=== PATIENT | female | born 1945 | race Two or more races ===

== ENCOUNTER → 2020-09-18 | Day surgery (SDC) | payer MEDICARE ==
--- NOTE | 2020-09-13 10:01 | Opthalmology H&P ---
Ophthalmology H&P H&P Chief Complaint: decreased vision in right eye HPI Vision Affects Ability to: read, watch TV, manage personal affairs HPI Narrative Blurry vision Exam Visual Acuity: OD CF @2 ft OS CF@2 ft Tension: OD 20 OS 18 Eye Exam: normal OU: external exam, palpebral fissure-width, marginal reflex distance, levator function, corneas, anterior chambers, fundus exam; findings: lens Assessment/Plan Treatment Plan: cataract extraction w/ lens implant Goals of Treatment: improvement of vision, enhance quality of life Attestation Attestation The risks and benefits of the surgery as well as alternative procedures were explained to the patient in detail. Victorino Elizalde MD Sep 13, 2020 10:01
--- NOTE | 2020-09-13 10:17 | Pre-Procedure Note/Attestation ---
Pre-Procedure Note/Attestation Complete Prior to Procedure Planned Procedure: right Procedure Narrative: Cataract extraction with intraocular lens implant right eye Indications for Procedure Pre-Operative Diagnosis: Brunescent/ Posterior subcapsular cataract right eye Attestation I attest that I discussed the nature of the procedure; its benefits; risks and complications; and alternatives (and the risks and benefits of such alternatives), prior to the procedure, with the patient (or the patient's legal field service representative). I attest that, if there was a reasonable possibility of needing a blood transfusion, the patient (or the patient's legal field service representative) was given the [facility] standardized written summary, pursuant to the [place] Blood Safety Act ([place] Health and Safety Code # 1645, as amended). I attest that I re-evaluated the patient just prior to the surgery and that there has been no change in the patient's H&P, except as documented below: Victorino Elizalde MD Sep 13, 2020 10:17
[~2020-09-18] VITALS: Ht 167.6 cm; Wt 93.4 kg
[2020-09-18] VITALS (7 sets, daily range): BP systolic 110–137; BP diastolic 41–66
[~2020-09-18] MED LIST: ASPIRIN500 MG ORAL; Akten 3.5% 1ml Btl RIGHT EYE ONE; BLOOD THINNER PO; BSS 15ml BTL ONE; BSS 500ml btl ONE; DiphenhydrAMINE 50mg/ml Inj IVP PRN; EPINEPHrine 1mg/1ml Amp ONE; INSULIN ASPART SUBQ; LORATADINE10 M1 PO; LR 1000ml 1,000 ML IVLG SCH; Lidocaine 1% MPF 10mg/ml 5ml ONE; Maxitrol Opth Oint 3.5gm ONE; NS Irrig 1000ml ONE; Pilocarpine 1% Opth 15ml Soln ONE; Povidone-Iodine 5% opth solution ONE; Proparacaine 0.5% Opth Soln 15ml RIGHT EYE ONE; Sodium Hyaluronate 10 mg/ml 0.85ml ONE; Sterile Water Irrig 1000ml IRRIG ONE; TUMS DUAL ACTI1 EACH PO; Tetracaine 0.5% Opth 4ml Soln RIGHT EYE ONE; VITAMIN D32400 UNIT/ MC; prednisoLONE acetate 1% Opth Susp 1ml ONE
[2020-09-18] MEDS: Tropicamide 1% Opth 15ml Soln RIGHT EYE SCH ×3 (08:39→08:49)
[2020-09-18] MEDS: Diclofenac Sod 0.1% Op Soln RIGHT EYE SCH ×3 (08:39→08:49)
[2020-09-18] MEDS: Phenylephrine 10% Opth Soln 5ml RIGHT EYE SCH ×3 (08:39→08:49)
[2020-09-18] MEDS: Tobramycin Op Soln 0.3% 5ml RIGHT EYE SCH ×3 (08:39→09:29)
--- NOTE | 2020-09-18 08:56 | Anethesia Preoperative Eval ---
Anesthesia Pre-op PMH/ROS General Date of Evaluation: Sep 18, 2020 Anesthesiologist: Jose Enrique ASA Score: ASA 3 Mallampati Score Class I : Soft palate, uvula, fauces, pillars visible Class II: Soft palate, uvula, fauces visible Class III: Soft palate, base of uvula visible Class IV: Only hard plate visible Mallampati Classification: Class III Surgeon: Fide Diagnosis: right cataract Surgical Procedure: right cataract extraction with iol Anesthesia History: none Family History: no anesthesia problems Allergies: Coded Allergies: CODEINE (Verified Allergy, Unknown, 09/11/20) Medications: see eMAR Patient NPO?: Yes NPO Date: Sep 18, 2020 NPO Time: 00:00 Past Medical History Cardiovascular: Reports: HTN, other - pacemakr-last checked jul 2020; Denies: CAD, [place], valve dz, arrhythmia Pulmonary: Reports: other - bronchitis; Denies: asthma, COPD, BOBBY Gastrointestinal/Genitourinary: Reports: GERD, ESRD - last dialysis sat, no issues; Denies: CRI, other Neurologic/Psychiatric: Denies: dementia, CVA, depression/anxiety, TIA, other Endocrine: Denies: DM, hypothyroidism, steroids, other HEENT: Reports: cataract (L), cataract (R); Denies: glaucoma, SUN'AQ (L), SUN'AQ (R), other Hematology/Immune: Reports: anemia - chronic; Denies: DVT, bleeding disorder, other Musculoskeletal/Integumentary: Reports: OA; Denies: RA, DJD, DDD, edema, other Other: obesity PSxH Narrative: Riht AV shunt, JJ, T&A, foot sx, lalo, pacemaker, hemorrhoidectomy Anesthesia Pre-op Phys. Exam Physician Exam Last Vital Signs Date Time Temp Pulse Resp B/P (MAP) Pulse Ox O2 Delivery O2 Flow Rate FiO2 09/18/20 08:35 97.2 85 18 110/43 95 Room Air Constitutional: NAD Cardiovascular: RRR, other - +murmur Respiratory: other - decreased brath sounds bilaterally Airway Exam Mallampati Score: Class III MO: limited ROM: limited Anesthesia Pre-op A/P Labs see chart Studies Pre-op Studies: EKG - sr Risk Assessment & Plan Assessment: ASA III Plan: MAC Status Change Before Surgery: No Pre-Antibiotics Drug: N/A Ethel Quispe MD Sep 18, 2020 08:56
--- NOTE | 2020-09-18 11:41 | 48 Hour Post Anesthesia Eval ---
Post Anesthesia Evaluation Procedure: right cataract extraction wtih IOL Date of Evaluation: Sep 18, 2020 Airway: patent Nausea: No Vomiting: No Pain Intensity: 0 Hydration Status: adequate Cardiopulmonary Status: at baseline Mental Status/LOC: patient returned to baseline Post-Anesthesia Complications: 0 Follow-up care needed: ready to discharge Ethel Quispe MD Sep 18, 2020 11:41
--- NOTE | 2020-09-18 11:41 | Immediate Post-Op Evaluation ---
Immediate Post-Op Evalulation Immediate Post-Op Evalulation Procedure: right cataract extraction wtih IOL Date of Evaluation: Sep 18, 2020 Time of Evaluation: 11:42 IV Fluids: 100 Blood Products: 0 Estimated Blood Loss: min Urinary Output: 0 Blood Pressure Systolic: 133 Blood Pressure Diastolic: 59 Pulse Rate: 86 Respiratory Rate: 16 O2 Sat by Pulse Oximetry: 100 Temperature (Fahrenheit): 98.2 Pain Score (1-10): 0 Nausea: No Vomiting: No Complications 0 Patient Status: awake, reacts, patent, none Hydration Status: adequate Drug: N/A Ethel Quispe MD Sep 18, 2020 11:41
--- NOTE | 2020-09-19 16:09 | Brief Operative Note ---
Immediate Post Operative Note Operative Note Chief Complaint: Blurry vision Pre-op Diagnosis: Brunescent/ Posterior subcapsular cataract right eye Procedure: Cataract extraction with IOL implant right eye Post-op Diagnosis: Pseudo OD Findings: consistent w/pre-op dx studies Surgeon: Victorino Elizalde MD Anesthesiologist: Ethel Quispe MD Anesthesia: MAC Specimen: none Complications: none Condition: stable Fluids: LR Estimated Blood Loss: none Drains: none Implant(s) used?: Yes - IOL-OD Victorino Elizalde MD Sep 19, 2020 16:09
--- NOTE | 2020-09-19 16:19 | Operative Note - PDOC ---
Operative Note Operative Note Date of Operation/Procedure: Sep 18, 2020 Chief Complaint: Blurry vision Pre-op Diagnosis: Brunescent/ Posterior subcapsular cataract right eye Procedure: Cataract extraction with IOL implant right eye Post-op Diagnosis: Pseudo OD Operative Findings: consistent w/pre-op dx studies Surgeon: Victorino Elizalde MD Anesthesiologist: Ethel Quispe MD Anesthesia: MAC Specimen: none Complications: none Condition: stable Fluids: LR Estimated Blood Loss: none Drains: none Implant(s) used?: Yes - IOL-OD Indications for Procedure Brunescent/ Posterior subcapsular cataract right eye Description of Procedure This patient has been complaining visually significant cataract in the right eye with the best corrected visual acuity of counting fingers at two foot distance . The patient complains of difficulties with glare in performing activities of daily living and wants to manage personal affairs with comfort and accuracy and see well enough to move with safety at home and outdoors. The risks, benefits and alternatives of the procedure were discussed with the patient in the office prior to scheduling surgery. All questions from the patient were answered after the surgical procedure was explained in detail. The risks of the procedure as explained to the patient include, but are not limited to, pain, infection, bleeding, loss of vision, retinal detachment, need for further surgery, loss of lens nucleus, double vision, etc. Alternative procedures were discussed which include, to do nothing or seek a second opinion. Informed consent for this procedure was obtained from the patient. The patient was referred to a primary care physician for a cardiopulmonary clearance prior to surgery, after proper evaluation was done patient was properly scheduled for outpatient surgery. The patient was brought to the operating room where the anesthesiologist established I.V. lines and cardiac monitoring leads. Mild intravenous sedation was administered. The patient was then prepared with a 5% solution of povidone-iodine to the conjunctival fornix and lashes, and a 5% solution of povidone-iodine to the lids and periorbital skin. The patient was then draped in the usual sterile fashion. A lid speculum was then placed in the operative eye. A keratome blade was then used to create a biplanar incision into the anterior chamber. Viscoelastics was then instilled into the anterior chamber. A capsulorrhexis was then fashioned with an utrata forceps A G 27 cannula was used to hydrodissect and hydro delineate the lens nucleus. Paracentesis incision was made at 3 o'clock with sharp blade. The phacoemulsification unit, after being properly adjusted and tested, was then used to emulsify the nucleus followed by aspiration and irrigation of residual cortical material. Healon was then instilled into the anterior chamber. The corneal wound was then enlarged to the size of the optic with the karina keratome blade. The intraocular lens was then inspected for right power and size and thought to be satisfactory. Then the lens was gently placed in the capsular bag. Positioning within the capsular bag was confirmed by direct visualization. Optic centration was accomplished with a Sinskey hook. Viscoelastics was removed from the anterior chamber using the irrigation and aspiration unit. The corneal wound was then tested for leaks and none were fou nd. The lid speculum were then removed. Sponge and needle counts were correct. An eye patch and shield were placed over the operative eye. The patient was taken to the recovery room in stable condition. There were no complications. The patient tolerated the procedure well. The patient was then transferred to the ambulatory surgery unit in stable and satisfactory condition, was given detailed written instructions and asked to follow up in the office the next day. Victorino Elizalde MD Sep 19, 2020 16:19
== END | disposition home or self-care (01) ==
LOC: SUR 06:39
DX: H25.041 Posterior subcapsular polar age-related cataract, right eye (principal); Z88.6 Allergy status to analgesic agent; Z95.0 Presence of cardiac pacemaker; I12.0 Hypertensive chronic kidney disease with stage 5 chronic kidney disease or end stage renal disease; N18.6 End stage renal disease; Z99.2 Dependence on renal dialysis; M19.90 Unspecified osteoarthritis, unspecified site; E66.9 Obesity, unspecified; Z90.49 Acquired absence of other specified parts of digestive tract
CPT/HCPCS: 36415; 66984; 82962; 84132; 94003; J0171; J1100; J3370; J7030; U0002; V2632; 94150